=== PATIENT | female | born 1965 | race African-American/Black ===

== ENCOUNTER 2017-07-02 14:18 | Outpatient (CLI) | payer OTHER | END 2017-07-02 14:19 | disposition home or self-care (01) | LOC: BICULT 14:18 | PROVIDERS: ATTEND Internal Medicine Hematology & Oncology | DX: I82.409 Acute embolism and thrombosis of unspecified deep veins of unspecified lower extremity (principal) | CPT/HCPCS: 93970 ==

== ENCOUNTER 2017-11-19 16:25 | Emergency (ER) | payer OTHER ==
[2017-11-19 16:55] LABS: Bilirubin Negative (Negative); Blood, Urine Negative (Negative); Clarity Clear (Clear); Glucose, Urine (Dipstick) Negative (Negative); Leukocyte Negative (Negative); Nitrite Negative (Negative); Protein, Urine (Dipstick) Negative (Neg-Trace); Specific Gravity, Urine 1.015 (1.005-1.030); Urobilinogen 0.2 mg/dL (0.2-1.0)
== END 2017-11-19 17:21 | disposition home or self-care (01) ==
LOC: SCSER 16:25
DX: M54.31 Sciatica, right side (principal); I10 Essential (primary) hypertension; K21.9 Gastro-esophageal reflux disease without esophagitis; Z86.718 Personal history of other venous thrombosis and embolism; F41.9 Anxiety disorder, unspecified; Z79.899 Other long term (current) drug therapy
CPT/HCPCS: 81003; 99283

== ENCOUNTER 2017-12-13 13:31 | Outpatient (CLI) | payer OTHER ==
--- NOTE | 2017-12-19 12:17 | MMO ---
BILATERAL SCREENING MAMMOGRAMS: 12/13/2017 HISTORY: A 43-year-old female patient presenting for screening mammography. COMPARISON: 01/05/2017 and 01/22/2008 FINDINGS: This study is interpreted with the assistance of computer-aided detection. Scattered fibroglandular densities are seen in each breast. There is a stable intramammary lymph nod e again seen in the upper outer left breast. There is a circumscribed mass seen within the upper out er right breast. The internal density of this mass is similar to adjacent breast parenchyma, suggest ing fat within this lesion, which may represent a traumatic oil cyst. No additional dominant mass or suspicious grouping of microcalcification is seen in either breast. IMPRESSION: BI-RADS Category 2-Benign findings. Routine annual screening is recommended. POS: [id number]
== END 2017-12-13 13:32 | disposition home or self-care (01) ==
LOC: SCSMAMMO 13:31
PROVIDERS: ATTEND Family Medicine
DX: Z12.31 Encounter for screening mammogram for malignant neoplasm of breast (principal)
CPT/HCPCS: 77067

== ENCOUNTER 2018-12-06 09:10 | Emergency (ER) | payer MEDICARE, OTHER | END 2018-12-06 10:21 | disposition left against medical advice (07) | LOC: SCSER 09:10 | DX: Z53.21 Procedure and treatment not carried out due to patient leaving prior to being seen by health care provider (principal) ==

== ENCOUNTER 2021-08-24 13:08 | Emergency (ER) | payer OTHER, MEDICARE | END 2021-08-24 16:30 | disposition home or self-care (01) | LOC: ERS 13:08 | DX: M25.511 Pain in right shoulder (principal); K21.9 Gastro-esophageal reflux disease without esophagitis; I10 Essential (primary) hypertension; G47.00 Insomnia, unspecified; Z79.899 Other long term (current) drug therapy; Z79.82 Long term (current) use of aspirin; V89.2XXA Person injured in unspecified motor-vehicle accident, traffic, initial encounter ==